=== PATIENT | female | born 2000 | race Caucasian/White ===

== ENCOUNTER 2021-04-14 12:17 | Emergency (ER) | payer OTHER ==
[~2021-04-14] VITALS: Ht 170.2 cm; Wt 118.6 kg
[~2021-04-14 12:17] MED LIST: ARIP5TAB13 PO; LAMO200T6 PO; METF-658 PO; NORG1TAB37 PO; SERT50TA PO; TRAZ-120 PO
--- NOTE | 2021-04-14 12:46 | PHYS DOC ---
Past History Past Medical History: Other Additional Past Medical Histor: autisum, low blood sugar, sleep Past Surgical History: Other Additional Past Surgical Histo: teeth Smoking: Non-smoker Alcohol Use: None Drug Use: None General Adult EDM: Chief Complaint: HEAD INJURY/TRAUMA HPI: HPI: Patient is a 20-year-old female who presents to the emergency department for a head injury that occurred yesterday at 1600. Patient reports that she tripped and fell and hit the right side of her head on a corner of a cart with books. Patient denies loss of consciousness, vomiting, seizure-like activity, flashing lights, back pain, blurred vision. She is reporting pain to her right holiness and right sided shoulder and neck pain. She states that it feels like she has a "crick in her neck". Patient rates her pain 5 out of 10. She took 2 Tylenol tablets at 7:00 this morning. Patient is reporting photophobia and nausea. Review of Systems: Review of Systems: Eyes: See HPI HENT: See HPI GI: See HPI Musculoskeletal: HPI Integument: HPI Neurologic: See HPI Allergies: Allergies: Allergies Coded Allergies Type Severity Reaction Last Updated Verified No Known Drug Allergies 11/03/15 No Physical Exam: PE: Constitutional: Well developed, well nourished, no acute distress, non-toxic appearance. [] HENT: Normocephalic, atraumatic, bilateral external ears normal, oropharynx moist, no oral exudates, no otorrhea, no battles sign, no racoon sign, no hematoma/ecchymosis noted to right holiness, nose normal. [] Eyes: PERRL,5mm bilateral, EOMI, conjunctiva normal, no discharge. [] Neck: Normal range of motion, no bony spinal tenderness, right-sided cervical tenderness with palpation along supraspinatus muscle, supple, no stridor. [] Cardiovascular:Heart rate regular rhythm, no murmur [] Lungs & Thorax: Bilateral breath sounds clear to auscultation [] Abdomen: Bowel sounds normal, soft, no tenderness, obese, no masses, no pulsatile masses. [] Skin: Warm, dry, no erythema, no rash. [] Back: No bony spinal tenderness, normal ROM Extremities: No tenderness, no cyanosis, no clubbing, ROM intact, no edema. [] right shoulder: patient reports increased pain with rom, no crepitis, pain with palpation of shoulder joint, neuro intact. Neurologic: Alert and oriented X 3, normal motor function, normal sensory function, no focal deficits noted. [] Psychologic: Affect normal, judgement normal, mood normal. [] Current Patient Data: Vital Signs: Vital Signs Date Time Temp Pulse Resp B/P (MAP) Pulse Ox O2 Delivery O2 Flow Rate FiO2 04/14/21 12:23 98.4 82 16 103/72 (82) 97 Room Air EKG: EKG: [] Radiology/Procedures: Radiology/Procedures: []PROCEDURE: SHOULDER 2+V RIGHT Right shoulder 3 views. HISTORY: Shoulder pain after a fall 3 views were taken of the right shoulder. There is not evidence of a fracture or dislocation or osseous abnormality. IMPRESSION: 1. Negative right shoulder. Electronically signed by: Lee Tobias MD (04/14/2021 1:23 PM) [facility] DICTATED AND SIGNED BY: LEE TOBIAS MD DATE: 04/14/21 1322 CC: ABILIO GOODWIN DO; KATLIN NUGENT; LYNNE CORBIN [employer]UCKING MACHINE TENDER ~MTH0 0 PROCEDURE: CT HEAD AND CERVICAL SPINE [facility] Compliance Statement: One or more of the following individualized dose reduction techniques were utilized for this examination: 1. Automated exposure control 2. Adjustment of the mA and/or kV according to patient size 3. Use of iterative reconstruction technique CT HEAD AND CERVICAL SPINE WITHOUT CONTRAST History: Reason: fell, hit head c/o r sided head pain / Spl. Instructions: / History: Comparison: None. Procedure: Axial images are obtained of the head from the skull base through the vertex without IV contrast. Noncontrast helical CT of the cervical spine was performed. Axial, sagittal, and coronal reconstructions were obtained. Findings: The ventricles and sulci are normal for the patient's age. No mass-effect, midline shift, hemorrhage or obvious acute infarction is identified. Basilar cisterns are patent. Bone windows demonstrate no significant calvarial abnormality. The visualized paranasal sinuses are clear. Mastoid air cells are well aerated. There is no evidence of acute fracture or acute malalignment of the cervical spine. The vertebral body height and alignment are maintained. There is no disc space narrowing. The facet joints are intact. Straightening of normal cervical lordosis may be positional or due to muscle spasm. There are several nonpathologically enlarged bilateral upper cervical lymph nodes. Lung apices are essentially not imaged. IMPRESSION: 1. No acute intracranial abnormality. 2. No acute fracture of the cervical spine. Electronically signed by: Uriah Miles MD (04/14/2021 1:37 PM) [facility] DICTATED AND SIGNED BY: URIAH MILES MD DATE: 04/14/21 1323 CC: ABILIO GOODWIN DO; KATLIN NUGENT; LYNNE CORBIN [employer] SHUCK[employer] MACHINE TENDER ~MTH0 0 Heart Score: C/O Chest Pain: N/A Risk Factors: Risk Factors: DM, Current or recent (<one month) smoker, HTN, HLP, family history of CAD, obesity. Risk Scores: Score 0 - 3: 2.5% MACE over next 6 weeks - Discharge Home Score 4 - 6: 20.3% MACE over next 6 weeks - Admit for Clinical Observation Score 7 - 10: 72.7% MACE over next 6 weeks - Early Invasive Strategies Course & Med Decision Making: Course & Med Decision Making Pertinent Labs and Imaging studies reviewed. (See chart for details) Patient presents to the emergency department for head injury. Patient reports that she hit the right side of her head on a corner of a blood cart. Imaging performed of patient's head and neck and right shoulder that she is reporting right-sided neck pain along her supraspinatus muscle and right shoulder. Imaging showed no acute findings. Patient advised to apply ice and take Tylenol and ibuprofen for her pain. I discussed with patient all findings and diagnostic testing as well as the need to follow-up with PCP for further evaluation and treatment or return to the ER if any new or worsening symptoms. Strict return precautions were also discussed at length. Patient voiced understanding and agreement with the plan. Patient is hemodynamically stable at the time of disposition. Dragon Disclaimer: Dragon Disclaimer: This electronic medical record was generated, in whole or in part, using a voice recognition dictation system. Departure Departure: Impression: Primary Impression: Head injury Qualified Codes: S09.90XA - Unspecified injury of head, initial encounter Disposition: HOME / SELF CARE / HOMELESS Condition: GOOD Referrals: KATLIN NUGENT (PCP) Patient Instructions: Head Injury, Adult Additional Instructions: You were seen in the emergency department today for a head injury and right- sided neck and shoulder pain. Imaging did not show any acute findings. You can apply ice. You can also take Tylenol and ibuprofen for any pain at home. Treatment for concussion includes brain rest which includes lying down in a dark quiet area and avoiding the use of cell phones, tablets and television. Follow-up with your primary care provider tomorrow regarding your ER visit. Return to the emergency department if you develop inability to walk, confusion, weakness to 1 side, seizure-like activity, tractable nausea or vomiting, blurred vision or loss of vision, severe headache/neck pain/back pain. LYNNE CORBIN APRN Apr 14, 2021 12:46
--- NOTE | 2021-04-14 13:25 | RAD ---
Right shoulder 3 views. HISTORY: Shoulder pain after a fall 3 views were taken of the right shoulder. There is not evidence of a fracture or dislocation or osseo us abnormality. IMPRESSION: 1. Negative right shoulder. Electronically signed by: Lee Tobias MD (04/14/2021 1:23 PM) [facility]
--- NOTE | 2021-04-14 13:39 | RAD ---
[employer] Compliance Statement: One or more of the following individualized dose reduction techniques were utilized for this examinat ion: 1. Automated exposure control 2. Adjustment of the mA and/or kV according to patient size 3. Use of iterative reconstruction technique CT HEAD AND CERVICAL SPINE WITHOUT CONTRAST History: Reason: fell, hit head c/o r sided head pain / Spl. Instructions: / History: Comparison: None. Procedure: Axial images are obtained of the head from the skull base through the vertex without IV co ntrast. Noncontrast helical CT of the cervical spine was performed. Axial, sagittal, and coronal rec onstructions were obtained. Findings: The ventricles and sulci are normal for the patient's age. No mass-effect, midline shift, hemorrhage or obvious acute infarction is identified. Basilar cistern s are patent. Bone windows demonstrate no significant calvarial abnormality. The visualized paranasal sinuses are clear. Mastoid air cells are well aerated. There is no evidence of acute fracture or acute malalignment of the cervical spine. The vertebral body height and alignment are maintained. There is no disc space narrowing. The facet j oints are intact. Straightening of normal cervical lordosis may be positional or due to muscle spasm. There are several nonpathologically enlarged bilateral upper cervical lymph nodes. Lung apices are es sentially not imaged. IMPRESSION: 1. No acute intracranial abnormality. 2. No acute fracture of the cervical spine. Electronically signed by: Uriah Miles MD (04/14/2021 1:37 PM) [facility]
[2021-04-14 13:52] VITALS: BP 110/75
== END 2021-04-14 13:50 | disposition home or self-care (01) ==
LOC: ER 12:17
DX: S09.90XA Unspecified injury of head, initial encounter (principal); M25.511 Pain in right shoulder; M54.2 Cervicalgia; W01.0XXA Fall on same level from slipping, tripping and stumbling without subsequent striking against object, initial encounter; Y93.89 Activity, other specified; Y92.89 Other specified places as the place of occurrence of the external cause; Y99.8 Other external cause status
CPT/HCPCS: 70450; 72125; 73030; 99284